=== PATIENT | female | born 1990 | race Two or more races ===

== ENCOUNTER 2023-02-01 13:57 | Inpatient (IN) | payer OTHER ==
[~2023-02-01] VITALS: Ht 160 cm; Wt 89.8 kg
== END 2023-02-07 13:40 | disposition home or self-care (01) | DRG 807 ==
LOC: LDR 02-05 10:21 → OB/GYN 02-05 20:17
PROVIDERS: ADMIT Obstetrics & Gynecology Maternal & Fetal Medicine; ATTEND Obstetrics & Gynecology Maternal & Fetal Medicine
PROC: 10E0XZZ Delivery of Products of Conception, External Approach (ICD-10-PCS; principal; 2023-02-05)
PROC: 0KQM0ZZ Repair Perineum Muscle, Open Approach (ICD-10-PCS; 2023-02-05)
PROC: 4A1HXCZ Monitoring of Products of Conception, Cardiac Rate, External Approach (ICD-10-PCS; 2023-02-05)
DX: O70.1 Second degree perineal laceration during delivery (principal); Z37.0 Single live birth; Z3A.39 39 weeks gestation of pregnancy; Z20.822 Contact with and (suspected) exposure to COVID-19

== ENCOUNTER 2023-02-02 11:16 | Outpatient (CLI) | payer OTHER | END 2023-02-02 12:47 | disposition home or self-care (01) | LOC: NST 11:16 | PROVIDERS: ATTEND Obstetrics & Gynecology | DX: Z34.83 Encounter for supervision of other normal pregnancy, third trimester (principal) ==

== ENCOUNTER 2023-02-03 11:47 | Outpatient (CLI) | payer OTHER | END 2023-02-03 14:51 | disposition home or self-care (01) | LOC: NST 11:47 | PROVIDERS: ATTEND Obstetrics & Gynecology | DX: Z34.83 Encounter for supervision of other normal pregnancy, third trimester (principal) ==